=== PATIENT | female | born 1945 | race Caucasian/White ===

== ENCOUNTER 2021-05-17 22:02 | Emergency (ER) | payer OTHER ==
[~2021-05-17] VITALS: Ht 170.2 cm; Wt 85.3 kg
--- NOTE | 2021-05-17 22:05 | NUR ---
PT [id number] FROM HOME C/O LOWER BACK PAIN WITH NAUSEA [id number]. PT A/OX4. TOLERATING R/A WELL WITH NO SOB. CONNECTED PT TO POX AND MONITOR.
[2021-05-17] MEDS ORDERED: ONDANSETRON 4 MG TAB.RAPDIS ONE (22:47)
[2021-05-17] MEDS ORDERED: HYDROCODONE/APAP 5/325MG TABLET ONE (22:47)
--- NOTE | 2021-05-17 22:58 | NUR ---
URINE COLLECTED AND SENT TO LAB
[2021-05-17] MEDS ORDERED: HYDROCODONE/APAP 5/325MG TABLET PO ONE (23:00)
[2021-05-17] MEDS ORDERED: ONDANSETRON 4 MG TAB.RAPDIS PO ONE (23:00)
--- NOTE | 2021-05-17 23:01 | NUR ---
PT TAKEN TO CT VIA [facility]
[2021-05-17 23:19] LABS: BILIRUBIN,URINE SMALL (NEGATIVE); COLOR,URINE YELLOW (YELLOW); LEUKOCYTE ESTERASE ,URINE MODERATE (NEGATIVE); NITRITE, URINE NEGATIVE (NEGATIVE); PH,URINE 5.5 (5.0-8.0); PROTEIN,URINE TRACE mg/dl (NEGATIVE); UGLUCOSE 500 MG/DL mg/dL (NEGATIVE)
[2021-05-17 23:31] LABS: BACTERIA,URINE 4+ /HPF (None Seen); RBC,URINE 0-2 /HPF (0-2); SQUAMOUS EPITHELIAL CELL,UR Moderate /HPF (None Seen); WBC,URINE 21-50 /HPF (0-3)
[2021-05-18] MEDS ORDERED: NITR100C6 PO (01:51)
[2021-05-18] MEDS ORDERED: PRED50TA PO (01:51)
[2021-05-18] MEDS ORDERED: HYDR-3972 PO (01:51)
[2021-05-18] MEDS ORDERED: NITROFURANTOIN/MONOHYDRATE MACROCRYSTALS 100 MG CAPSULE PO ONE (02:00)
[2021-05-18] MEDS ORDERED: NITROFURANTOIN/MONOHYDRATE MACROCRYSTALS 100 MG CAPSULE ONE (02:01)
--- NOTE | 2021-05-18 02:10 | NUR ---
Patient does not remember home number. No number listed in demographics. charge nurse made aware.
--- NOTE | 2021-05-18 02:10 | NUR ---
discharge instructions given to pt with rx
--- NOTE | 2021-05-18 05:45 | NUR ---
[facility] son called [facility] and will pick pt up in the morning, time not provided.
--- NOTE | 2021-05-18 08:34 | NUR ---
CALLED [facility] AND SET UP [facility]SPORT HOME. ETA [phone]
--- NOTE | 2021-05-18 08:35 | NUR ---
SON ARRIVED VIA [facility] AND [facility] REFUSED TO TAKE PT HOME
--- NOTE | 2021-05-18 09:03 | NUR ---
PT TRANSPORT BACK HOME [facility]IA [facility]
[2021-05-18 09:43] VITALS: BP 106/72
== END 2021-05-18 09:11 | disposition home or self-care (01) ==
LOC: ER 22:05 → EDBD 22:05 → ER 05-18 09:11
DX: M51.36 Other intervertebral disc degeneration, lumbar region (principal); N39.0 Urinary tract infection, site not specified
CPT/HCPCS: 72131; 81001; 87077; 87086; 87186; 99285; Q0162